=== PATIENT | female | born 1970 | race Caucasian/White ===

== ENCOUNTER → 2023-08-08 13:43 | Outpatient (CLI) | payer OTHER, SELFPAY ==
--- NOTE | 2023-08-08 13:46 | DI.MRI.S_ITS ---
PROCEDURE: MR KNEE RT WO CON INDICATIONS: PAIN IN RT KNEE TECHNIQUE: Noncontrast sagittal PD fast spin echo and T2 fast spin echo with fat saturation, sagittal 3-D FLASH with fat saturation; coronal T1 spin echo and PD fast spin echo with fat saturation, and axial PD fast spin echo with fat saturation through the knee. COMPARISON: [facility] Outside Film, CR, XR KNEE 4+ VIEWS RIGHT, 05/06/2023, 12:03. FINDINGS: Image quality: Diagnostic Menisci: Medial: Intact. Meniscocapusular junction maintained. Lateral: Intact. Meniscopopliteal fascicles maintained. Cruciate ligaments: Intact Medial structures: MCL: Intact Pes anserine tendons: Intact Semimembranosus: Intact Lateral structures: LCL: Intact Biceps femoris: Intact IT band: Intact Popliteus tendon: Intact Anterior structures: Extensor mechanism: Intact Fat pads: Mild quadriceps fat pad edema Medial retinaculum: Intact. Trochlea: Unremarkable morphology. Bone and joint: Bones: Diffuse heterogeneity of the marrow signal. Cartilage: No significant defect in the medial lateral compartment cartilage. However, there are full-thickness multifocal defects at the median ridge and lateral facet of the patella, with subchondral edema. Joint space: Trace joint fluid Rasheed's cyst: Tiny Rasheed's cyst adjacent to the posterior joint capsule. No discrete Rasheed's cyst Soft tissues: No significant vascular or other soft tissue pathology. IMPRESSION: Significant cartilage loss in the median ridge and lateral facet of the patella, with significant subchondral edema. Findings could represent significant focal degenerative changes, or prior osteochondral or traumatic injury. Mild adjacent edema in the quadriceps fat pad. Intact menisci and cruciate ligaments. Intact collateral ligaments. Diffusely heterogeneous marrow signal is nonspecific, sometimes seen with, for example, history of smoking or anemia, correlate with hematologic markers and patient history. Dictated by: Dustin Austin M.D. on 08/10/2023 at 11:44 Approved by: Dustin Austin M.D. on 08/10/2023 at 11:49
== END ==
LOC: MRI 13:45
PROVIDERS: Referring Provider Orthopaedic Surgery Adult Reconstructive Orthopaedic Surgery; Visit Provider Orthopaedic Surgery Adult Reconstructive Orthopaedic Surgery
DX: R60.0 Localized edema (principal); M25.561 Pain in right knee
CPT/HCPCS: 73721